=== PATIENT | female | born 1975 | race Caucasian/White ===

== ENCOUNTER 2022-05-26 08:42 | Emergency (ER) | payer BC, SELFPAY ==
--- NOTE | ~2022-05-26 | CT_ITS ---
EXAMINATION: CT pelvis wo con DATE: 05/26/2022 09:58 INDICATION: Sacrococcygeal pain. Fall 3 days ago. TECHNIQUE: Computed tomography (CT) of the pelvis was performed without intravenous contrast. Automat ed exposure control and iterative reconstruction technique were employed. The dose-length product was 687.09 mGy-cm. COMPARISON: None FINDINGS: Bone alignment is normal. There is a fracture of S5 segment of the sacrum with impaction. 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 There is mild lumbar spondylosis . IMPRESSION: 1. Fracture of S5 segment of the sacrum with impaction. Reviewed, dictated and finalized at location A.
[2022-05-26 08:52] VITALS: BP 172/105; PULSE 85; RESP 16; TEMP 36.8; O2SAT 100
--- NOTE | 2022-05-26 09:14 | ED.BACK ---
HPI - Back Pain/Injury General Chief Complaint: Back Pain/Injury Stated Complaint: FALL LOW BACK PAIN Time Seen by Provider: 05/26/22 08:46 Source: patient and RN notes reviewed Mode of arrival: ambulatory Limitations: no limitations History of Present Illness MD elicited complaint: back pain (tail-bone painful) and fall Pertinent past history: recent trauma (fell onto her butt 3 days ago.) Onset (ago): day(s) (3) Timing: constant Severity: mild Pain scale (0-10): 4 Similar Symptoms Previously: No Quality: dull and aching Location: sacrum (and coccycx) Radiation: other (down the left thigh) Exacerbating factors: movement Relieving factors: immobilization and walking Context: fall Associated symptoms: denies other symptoms Treatments prior to arrival: NSAIDS Related Data Allergies Allergy/AdvReac Type Severity Reaction Status Date / Time No Known Allergies Allergy Unverified 05/26/22 09:11 Review of Systems Review of Systems: All systems reviewed & are unremarkable except as noted in HPI and below Constitutional: Constitutional: Reports no additional constitutional complaints Eyes: Eyes: Reports no additional eye complaints ENT: Reports system reviewed and no additional complaints, except as documented Cardiovascular: Cardiovascular: Reports no additional cardiovascular complaints Respiratory: Respiratory: Reports no additional respiratory complaints Gastrointestinal: Gastrointestinal: Reports no additional gastrointestinal complaints Genitourinary: Genitourinary: Reports no additional female genitourinary complaints Musculoskeletal: Musculoskeletal: Reports back pain (coccyxgeal pain) Integumentary/Breasts: Skin/Breast: Reports system reviewed and no additional complaints, except as docu Neurologic: Reports system reviewed and no additional complaints, except as documented Psychiatric: Psychiatric: Reports no additional psychiatric complaints Endocrine: Endocrine: Reports no additional endocrine complaints Hematologic/Lymphatic: Hematologic/Lymphatic: Reports no additional hematologic/lymphatic complaints Allergic/Immunologic: Allergic/Immunologic: Reports no additional allergic/immunologic complaints PMFSH Past Medical History Medical History Back pain Exam Const: General: healthy appearing and no acute distress Nutritional Appearance: well nourished Orientation/consciousness: patient oriented x3 Limitations: no limitations HENMT: Head: normal to inspection Ears: external ears normal, TM's normal bilaterally and EAC's normal General nose exam: Normal external nose present and Normal nares present Face and sinus: normal facial exam and sinuses nontender Mouth: Yes Normal oral and palatal mucosa present and Yes moist mucous membranes Teeth and gingiva: dentition normal Throat: posterior oropharynx normal Eyes: Conjunctivae: conjunctivae normal Pupils: Equal, round and reactive pupils present EOM: EOMs intact bilaterally Neck: Neck: normal visual inspection, no lymphadenopathy and no meningeal signs Chest: Chest palpation & inspection: normal inspection of the chest Resp: Effort & Inspection: normal respiratory effort Auscultation: clear to auscultation bilaterally Cardio: Rate: regular rate Rhythm: regular rhythm GI: GI Palp: Yes Soft to palpation and No Tenderness to palpation present (GI) Auscultation: normal bowel sounds : General: Yes bladder normal to palpation and Yes no CVA tenderness Bimanual exam- vagina & uterus: bladder normal to palpation Back/Spine/Pelvis: Back: no CVA tenderness Other: minimal sacral tenderness, no marked redness, swelling or acute deformity. Skin: General skin exam: normal color Rashes: no rashes Wounds: no wounds Neuro: General: patient oriented x3, moves all extremities, no meningeal signs, no focal motor deficits and CN's II-XI intact bilaterally Cranial nerves: Yes Equal, round and
[2022-05-26] MEDS: KETOROLAC (*BKC) 60 MG/2 ML VIAL IM (09:18)
[2022-05-26 09:30] VITALS: BP 147/86; PULSE 88; RESP 16; O2SAT 99
--- NOTE | 2022-05-26 09:30 | PC.NURSE ---
bp decreased to 147/86, per erp do not give clonidine
[2022-05-26 10:44] VITALS: BP 141/95; PULSE 78; RESP 16; TEMP 36.4; O2SAT 100
== END 2022-05-26 10:45 | disposition home or self-care (01) ==
LOC: CHSED 10:30
PROVIDERS: Emergency Provider Emergency Medicine
DX: M54.30 Sciatica, unspecified side (principal); S32.10XA Unspecified fracture of sacrum, initial encounter for closed fracture; W19.XXXA Unspecified fall, initial encounter
CPT/HCPCS: 72192; 96372; 99283; J1885

== ENCOUNTER 2022-08-16 16:11 | Emergency (ER) | payer BC, SELFPAY ==
--- NOTE | ~2022-08-16 | XR_ITS ---
EXAM: XR hand RT min 3V DATE: 08/16/2022 16:49 HISTORY: fall pain over 1st and 2nd metacarpals . COMPARISON: None available. FINDINGS: Normal mineralization. No fracture or dislocation. No lytic or blastic lesion. Moderate de generative change at the trapeziometacarpal joint. No erosion or periosteal change. Soft tissues with in normal limits. IMPRESSION: No acute osseous finding in the right hand. Reviewed, dictated and finalized at location K. AID
[2022-08-16 16:16] VITALS: BP 158/89; PULSE 87; RESP 16; TEMP 37.2; O2SAT 99
--- NOTE | 2022-08-16 16:22 | ED.UPPEXIN ---
HPI - Extremity Injury (Upper) General Chief Complaint: Extremity Injury, Upper Stated Complaint: right hand pain Time Seen by Provider: 08/16/22 16:22 Source: patient and RN notes reviewed Mode of arrival: ambulatory Limitations: no limitations History of Present Illness HPI narrative: patient says that she tripped and fell over backwards putting her hands behind her. Her pain is at the right thumb along the metacarpal bone and the distal metacarpal 2nd peer complaint: injury to: right and hand Onset (ago): hour(s) (2) Other Extremity Injury: Right: hand Other injuries: none Handedness: right Place: home Severity: moderate Relieving factors: none Exacerbating factors: movement of extremity Context: fall Associated symptoms: denies other symptoms Related Data Home Medications Medication Instructions Recorded Confirmed No Home Medications 08/16/22 08/16/22 Allergies Allergy/AdvReac Type Severity Reaction Status Date / Time No Known Allergies Allergy Unverified 05/26/22 09:11 Review of Systems Review of Systems: All systems reviewed & are unremarkable except as noted in HPI and below PMFSH Past Medical History Medical History (Updated 08/16/22 @ 17:13 by Edmund Razo MD) Back pain GERD (gastroesophageal reflux disease) Surgical History Surgical History (Updated 08/16/22 @ 16:39 by Edmund Razo MD) History of tonsillectomy Social History Social History (Updated 08/16/22 @ 16:39 by Edmund Razo MD) Smoking packs per day: 1 Smoking cigarettes per day: 20.0 Smoking status: Current every day smoker Tobacco type: cigarettes Alcohol intake: current Alcohol use details: rarely Exam Const: General: healthy appearing, no acute distress and alert Nutritional Appearance: well nourished Orientation/consciousness: patient oriented x3 Limitations: no limitations HENMT: Head: normal to inspection Ears: external ears normal Eyes: Conjunctivae: conjunctivae normal Pupils: Equal, round and reactive pupils present EOM: EOMs intact bilaterally Neck: Neck: normal visual inspection Resp: Effort & Inspection: normal respiratory effort Auscultation: clear to auscultation bilaterally Cardio: Rate: regular rate Rhythm: regular rhythm GI: GI Palp: Yes Soft to palpation and No Tenderness to palpation present (GI) Auscultation: normal bowel sounds Back/Spine/Pelvis: Cervical Spine: cervical ROM normal Thoracic/Lumbar Spine: thoraco-lumbar ROM normal Skin: General skin exam: normal color Rashes: no rashes Neuro: General: patient oriented x3, moves all extremities, no focal motor deficits and CN's II-XI intact bilaterally Speech: normal speech Gait exam (Neuro): Normal gait present Extrem: General: no clubbing, cyanosis or edema Right upper extremity: Extremity exam: right hand neuromotor exam normal, neurosensory exam normal, tenderness of the dorsal hand over the 1st metacarpal and of the thumb at the MCP joint, vascular exam (Normal) and abnormal ROM of finger pain with active ROM of the thumb and pain with passive ROM of the thumb Psych: Mental Status: mental status grossly normal Affect: normal affect Attitude: cooperative Course Vital Signs Vital signs: Vital Signs Temperature 37.2 C 08/16/22 16:16 Pulse Rate 87 08/16/22 16:16 Respiratory Rate 16 08/16/22 16:16 Blood Pressure 158/89 H 08/16/22 16:16 Pulse Oximetry 99 08/16/22 16:16 Oxygen Delivery Room Air 08/16/22 16:16 Temperature 37.2 C 08/16/22 16:16 Pulse Rate 87 08/16/22 16:16 Respiratory Rate 16 08/16/22 16:16 Blood Pressure 158/89 H 08/16/22 16:16 Pulse Oximetry 99 08/16/22 16:16 Oxygen Delivery Room Air 08/16/22 16:16 Procedures Orthopedic Splinting/Casting Injury #1: Upper Extremity Injury Location: hand Upper Extremity Immobilizer: Benito wrap Pre-Procedure Neuro Vascular Exam: normal Post-Procedure Neuro Vascular Exam: normal
--- NOTE | 2022-08-16 16:51 | PC.NURSE ---
pt resting per cot. awaiting xray results.
[2022-08-16 17:25] VITALS: BP 137/92; PULSE 87; RESP 18; TEMP 36.3; O2SAT 98
== END 2022-08-16 17:40 | disposition home or self-care (01) ==
PROVIDERS: Emergency Provider Emergency Medicine
DX: S63.601A Unspecified sprain of right thumb, initial encounter (principal); W01.0XXA Fall on same level from slipping, tripping and stumbling without subsequent striking against object, initial encounter
CPT/HCPCS: 73130; 99283